=== PATIENT | male | born 1975 | race Hispanic/Latino ===

== ENCOUNTER 2025-09-06 22:28 | Emergency (ER) | payer SELFPAY ==
[2025-09-06] MEDS ORDERED: Lidocaine 1% PF 5 ML VIAL ONE (23:21)
== END 2025-09-06 23:44 | disposition home or self-care (01) ==
LOC: BURERS 22:28
DX: S91.111A Laceration without foreign body of right great toe without damage to nail, initial encounter (principal); W25.XXXA Contact with sharp glass, initial encounter
CPT/HCPCS: 12001; 99283